=== PATIENT | female | born 1930 | race Caucasian/White ===

== ENCOUNTER 2018-09-24 14:12 | Emergency (ER) | payer BC, MEDICARE ==
--- NOTE | 2018-09-24 14:39 | CT ---
[id number] CT/CT Head Stroke Protocol Exam: CT Head Stroke Protocol Clinical Data: NEUROLOGIC DEFICIT COMPARISON: NO PREVIOUS SIMILAR EXAM IS AVAILABLE FINDINGS: There is no mass or mass effect. There is no hemorrhage or hydrocephalus. There are no extra-axial fluid collections. There are no sites of abnormal attenuation. There is no hyperdense middle cerebral artery sign. The aspect score is 10. Report was called at time of this dictation. IMPRESSION: NEGATIVE PLAIN CT BRAIN. Edi Romero MD 09/24/18 [id number] Thank you for allowing us to participate in the care of your patient.
[2018-09-24 15:07] LABS: CHLORIDE,CL 105 mmol/L (98-107); SODIUM,NA 145 mmol/L (136-145)
[2018-09-24 15:08] LABS: ANION GAP 13.4 mmol/L (10-20)
--- NOTE | 2018-09-24 15:12 | EDM.PDOC ---
ED HPI GENERAL MEDICAL PROBLEM - General Chief Complaint: Neuro Symptoms/Deficits Stated Complaint: MINI STROKE Time Seen by Provider: 09/24/18 14:48 Source of Information: Reports: Patient, Family History Limitations: Reports: No Limitations - History of Present Illness INITIAL COMMENTS - FREE TEXT/NARRATIVE: Patient is here with complaints of left sided weakness, speech difficulty. Last known well 11 am. No complaints of chest pain, SOB, abdominal pain, no blood in urine or stool. No nausea, vomiting. No headache, blurry vision, ear ringing, hearing difficulty. No recent illness. Has had several "mini" strokes or TIA, with her last reported to have been this August. Onset: Today, Sudden Onset Time: 11:00 ED ROS GENERAL - Review of Systems Review Of Systems: See Below Constitutional: Reports: No Symptoms HEENT: Reports: Other (speech difficulty) Respiratory: Reports: No Symptoms Cardiovascular: Reports: No Symptoms Endocrine: Reports: No Symptoms GI/Abdominal: Reports: No Symptoms : Reports: No Symptoms Musculoskeletal: Reports: Other (left sided weakness) Skin: Reports: No Symptoms Neurological: Reports: Trouble Speaking, Weakness (left side), Change in Speech Psychiatric: Reports: No Symptoms Hematologic/Lymphatic: Reports: No Symptoms Immunologic: Reports: No Symptoms ED EXAM, NEURO - Physical Exam Exam: See Below Exam Limited By: No Limitations General Appearance: Alert, WD/WN, Mild Distress Eye Exam: Bilateral Eye: EOMI, Normal Inspection, PERRL (pupils 2-3 and equally reactive) Ears: Normal TMs Nose: Normal Inspection, Normal Mucosa, No Blood Throat/Mouth: Normal Inspection, Normal Lips, Normal Teeth, Normal Gums, Normal Oropharynx, Normal Voice, No Airway Compromise Head Exam: Other (left sided facial and eybrow droop) Neck: Normal Inspection, Supple, Non-Tender, Full Range of Motion Respiratory/Chest: No Respiratory Distress, Lungs Clear, Normal Breath Sounds, No Accessory Muscle Use, Chest Non-Tender Cardiovascular: Normal Peripheral Pulses, Regular Rate, Rhythm, No Edema, No Gallop, No JVD, No Murmur, No Rub GI/Abdominal: Normal Bowel Sounds, Soft, Non-Tender, No Organomegaly, No Distention, No Abnormal Bruit, No Mass Neurological: Alert, Normal Mood/Affect, Other (normal pin prick, normal light touch, left side weakness to upper and lower extremities with weak left sided dorsal and plantar flexion). No: Normal Dorsiflexion, Normal Plantar Flexion, No Motor/Sensory Deficits, Oriented x 3 Course - Orders/Labs/Meds Labs: Laboratory Tests 09/24/18 09/24/18 09/24/18 Range/Units 14:30 14:30 14:30 WBC 5.9 (4.0-10.0) x10^3/uL RBC 2.89 L (4.00-5.50) x10^6/uL Hgb 9.6 L (12.0-16.0) g/dL Hct 31.4 L (33.0-47.0) % MCV 108.7 H (78.0-93.0) fL MCH 33.2 H (26.0-32.0) pg MCHC 30.6 L (32.0-36.0) g/dL RDW Coeff of Jeison 14.5 (10.0-15.0) % Plt Count 178 (130-400) x10^3/uL Neut % (Auto) 61.5 (50.0-80.0) % Lymph % (Auto) 23.8 L (25.0-50.0) % Mclean % (Auto) 10.3 (2.0-11.0) % Eos % (Auto) 4.1 H (0.0-4.0) % Baso % (Auto) 0.3 (0.2-1.2) % PT 10.4 (9.6-11.4) SEC INR 1.0 L (2.0-3.5) APTT 22.8 (21.3-33.5) SEC Sodium 145 (136-145) mmol/L Potassium 3.4 L (3.5-5.1) mmol/L Chloride 105 (98-107) mmol/L Carbon Dioxide 30 (21-32) mmol/L Anion Gap 13.4 (10-20) mmol/L BUN 22 H (7-18) mg/dL Creatinine 1.6 H (0.55-1.02) mg/dL Est Cr Clr Drug Dosing TNP Estimated GFR (MDRD) 30 Glucose 108 H (74-106) mg/dL POC Glucose (74-106) mg/dL Lactic Acid (0.4-2.0) mmol/L Calcium 9.3 (8.5-10.1) mg/dL Corrected Calcium 9.54 (8.5-10.1) mg/dL Phosphorus 3.1 (2.6-4.7) mg/dL Magnesium 2.0 (1.8-2.4) mg/dL Total Bilirubin 1.0 (0.2-1.0) mg/dL AST 25 (15-37) U/L ALT 20 (14-59) U/L Alkaline Phosphatase 82 (46-116) U/L POC Troponin I (0.00-0.08) ng/mL C-Reactive Protein < 0.2 (<=0.9) mg/dL Total Protein 7.0 (6.4-8.2) g/dL Albumin 3.7 (3.4-5.0) g/dL Globulin 3.3 Albumin/Globulin Ratio 1.12 TSH, Ultra Sensitive 2.030 (0.358-3.74) uIU/mL 09/24/18 09/24/18 09/24/18 Range/Units 14:30 14:32 14:37 WBC (4.0-10.0) x10^3/uL RBC (4.00-5.50) x10^6/uL Hgb (12.0-16.0) g/dL Hct (33.0-47.0) % MCV (78.0-93.0) fL MCH (26.0-32.0) pg MCHC (32.0-36.0) g/dL RDW Coeff of Jeison (10.0-15.0) % Plt Count (130-400) x10^3/uL Neut % (Auto) (50.0-80.0) % Lymph % (Auto) (25.0-50.0) % Mclean % (Auto) (2.0-11.0) % Eos % (Auto) (0.0-4.0) % Baso % (Auto) (0.2-1.2) % PT (9.6-11.4) SEC INR (2.0-3.5) APTT (21.3-33.5) SEC Sodium (136-145) mmol/L Potassium (3.5-5.1) mmol/L Chloride (98-107) mmol/L Carbon Dioxide (21-32) mmol/L Anion Gap (10-20) mmol/L BUN (7-18) mg/dL Creatinine (0.55-1.02) mg/dL Est Cr Clr Drug Dosing Estimated GFR (MDRD) Glucose (74-106) mg/dL POC Glucose 117 H (74-106) mg/dL Lactic Acid 1.5 (0.4-2.0) mmol/L Calcium (8.5-10.1) mg/dL Corrected Calcium (8.5-10.1) mg/dL Phosphorus (2.6-4.7) mg/dL Magnesium (1.8-2.4) mg/dL Total Bilirubin (0.2-1.0) mg/dL AST (15-37) U/L ALT (14-59) U/L Alkaline Phosphatase (46-116) U/L POC Troponin I 0.00 (0.00-0.08) ng/mL C-Reactive Protein (<=0.9) mg/dL Total Protein (6.4-8.2) g/dL Albumin (3.4-5.0) g/dL Globulin Albumin/Globulin Ratio TSH, Ultra Sensitive (0.358-3.74) uIU/mL - Re-Assessments/Exams Free Text/Narrative Re-Assessment/Exam: 09/24/18 15:25 tPa administered. Risks/benefits reviewed with family and patient and she did agree Departure - Departure Time of Disposition: 15:17 Disposition: DC/Tfer to Acute Hospital 02 Condition: Good Clinical Impression: Stroke - Discharge Information *PRESCRIPTION DRUG MONITORING PROGRAM REVIEWED*: Not Applicable *COPY OF PRESCRIPTION DRUG MONITORING REPORT IN PATIENT ANABEL: Not Applicable Referrals: Nitish Nettles MD [Primary Care Provider] - Forms: ED Department Discharge, Interfacility Transfer [facility] [place] ED Communication - ED Communication Date/Time Date: 09/24/18 Time Called: 14:55 - Discussed Case With (1) Discussed Case With (1): Admitting Provider (Dr. Torres with [facility] neurology did receive report and recommended TPA administration. No contraindications.) - Problem List & Annotations (1) Stroke SNOMED Code(s): 203006304 Code(s): I63.9 - CEREBRAL INFARCTION, UNSPECIFIED Status: Acute Priority : Medium Current Visit: Yes Qualifiers: CVA mechanism: unspecified Qualified Code(s): I63.9 - Cerebral infarction, unspecified - Problem List Review Problem List Initiated/Reviewed/Updated: Yes
== END 2018-09-24 15:20 | disposition short-term general hospital (02) ==
LOC: VM.ED 14:12
DX: I63.9 Cerebral infarction, unspecified (principal)
CPT/HCPCS: 70450; 80053; 82962; 83605; 83735; 84100; 84443; 84484; 85025; 85610; 85730; 86140; 96374; 96376; 99284-GF; 99291-25